=== PATIENT | female | born 1980 | race Two or more races ===

== ENCOUNTER 2017-09-21 05:24 | Inpatient (IN) | payer MEDICAID ==
[2017-09-21] MEDS ORDERED: LACTATED RINGER'S 500 ML IV (05:46)
[2017-09-21] MEDS ORDERED: CEFAZOLIN 2 GM/50 ML (PMX) 50 ML IV (06:00)
[2017-09-21] MEDS ORDERED: MISOPROSTOL 200 MCG TAB PR ×2 (06:00→17:30)
[2017-09-21] MEDS ORDERED: CARBOPROST 250 MCG INJ IM ×2 (06:00→17:30)
[2017-09-21] MEDS ORDERED: METHYLERGONOVINE 0.2 MG INJ IM ×2 (06:00→17:30)
[2017-09-21] MEDS ORDERED: OXYTOCIN 30 UNITS/LR 500 ML IV ×2 (06:00→17:30)
[2017-09-21 06:35] LABS: ADD MAN DIFF? NO
[2017-09-21] MEDS: LACTATED RINGER'S 1,000 ML IV (06:38)
[2017-09-21 06:49] LABS: INR 0.84; PROTIME 11.6 Sec (11.9-14.9); PT RATIO 0.9
[2017-09-21 06:50] LABS: ABNORMAL IP MESSAGE 1; BASOPHILS % 0.4 % (0.0-2.0); EOSINOPHILS # 0.1 10^3/ul (0.0-0.5); EOSINOPHILS % 1.1 % (0.0-7.0); HEMATOCRIT 42.4 % (37.0-47.0); HEMOGLOBIN 14.3 g/dl (12.0-16.0); LYMPHOCYTES # 2.5 10^3/ul (0.8-2.9); LYMPHOCYTES % 29.4 % (15.0-51.0); MEAN CORPUSCULAR HEMOGLOBIN 29.8 pg (29.0-33.0); MEAN CORPUSCULAR HGB CONC 33.7 g/dl (32.0-37.0); MEAN CORPUSCULAR VOLUME 88.3 fl (82.0-101.0); MEAN PLATELET VOLUME 13.3 fl (7.4-10.4); MONOCYTE # 0.7 10^3/ul (0.3-0.9); MONOCYTES % 7.9 % (0.0-11.0); NEUTROPHILS % 59.9 % (39.0-77.0); NUCLEATED RED BLOOD CELLS # 0.1 10^3/ul (0.0-0.0); NUCLEATED RED BLOOD CELLS% 0.7 /100WBC (0.0-0.0); PARTIAL THROMBOPLASTIN TIME 28.4 Sec (25.0-35.0); PLATELET COUNT 177 10^3/UL (140-415); RED CELL DISTRIBUTION WIDTH 13.8 % (11.5-14.5)
[2017-09-21 06:50] LABS: WHITE BLOOD COUNT 8.3 10^3/ul (4.8-10.8)
[2017-09-21 06:54] LABS: POSITIVE DIFF @See below
[2017-09-21] MEDS ORDERED: morphine SULFATE/PF (10 MG/10 ML) INJ (09:12)
[2017-09-21] MEDS ORDERED: PHENYLephrine (100 MCG/ML) 5ML SYG (09:33)
[2017-09-21] MEDS ORDERED: ONDANSETRON 4 MG INJ (09:34)
[2017-09-21] MEDS ORDERED: DEXAMETHASONE 4 MG/ML 1 ML INJ (09:34)
[2017-09-21] MEDS: OXYTOCIN 30 UNITS/LR 500 ML IV ×3 (10:53→23:03)
[2017-09-21] MEDS ORDERED: DIPHENHYDRAMINE 50 MG INJ IV (11:00)
[2017-09-21] MEDS ORDERED: HYDROmorphONE 0.5 MG/0.5 ML SYG IV ×2 (11:00)
[2017-09-21] MEDS ORDERED: ONDANSETRON 4 MG INJ IV (11:00)
[2017-09-21] MEDS ORDERED: NALOXONE (0.4 MG/ML) INJ IV (11:00)
[2017-09-21] MEDS ORDERED: NALBUPHINE HCL (10 MG/1 ML) INJ IV (11:00)
[2017-09-21] MEDS ORDERED: ZOLPIDEM 5 MG TAB PO (11:00)
[2017-09-21] MEDS: KETOROLAC 30 MG INJ IV (14:06)
[2017-09-21] MEDS ORDERED: HYDROCODONE/APAP (5/325) TAB PO ×2 (17:30)
[2017-09-21] MEDS ORDERED: OXYCODONE/ACETAMINOPHEN (5/325) TAB PO ×2 (17:30)
[2017-09-21] MEDS: LANOLIN 7 GM TUBE TOP (17:40)
[2017-09-21] MEDS: CEFAZOLIN 1 GM/50 ML (PMX) 50 ML IVPB (17:41)
[2017-09-21 18:36] LABS: RAPID PLASMA REAGIN NONREACTIVE (NR)
[2017-09-21] MEDS: GUAIFENESIN/DM 5ML CUP PO (20:46)
[2017-09-21] MEDS: SENNA/DOCUSATE NA (8.6MG/50MG) TAB PO (20:46)
[2017-09-21] MEDS: LACTATED RINGER'S 500 ML IV (23:00)
[2017-09-22] MEDS: OXYTOCIN 30 UNITS/LR 500 ML IV ×6 (01:15→21:15)
[2017-09-22] MEDS: LACTATED RINGER'S 1,000 ML IV (03:23)
[2017-09-22] MEDS: KETOROLAC 30 MG INJ IV (06:07)
[2017-09-22] MEDS: GUAIFENESIN/DM 5ML CUP PO ×3 (06:43→22:46)
[2017-09-22] MEDS ORDERED: INFLUENZA VIRUS VACCINE 0.5 ML (DISPENSING) IM* (09:00)
[2017-09-22 09:18] LABS: WHITE BLOOD COUNT 11.5 10^3/ul (4.8-10.8)
[2017-09-22 09:18] LABS: ABNORMAL IP MESSAGE 1; HEMATOCRIT 37.1 % (37.0-47.0); HEMOGLOBIN 12.5 g/dl (12.0-16.0); MEAN CORPUSCULAR HGB CONC 33.7 g/dl (32.0-37.0); MEAN PLATELET VOLUME 13.3 fl (7.4-10.4); PLATELET COUNT 200 10^3/UL (140-415); RED BLOOD COUNT 4.17 10^6/ul (4.20-5.40); RED CELL DISTRIBUTION WIDTH 13.7 % (11.5-14.5)
[2017-09-22 09:45] LABS: POSITIVE DIFF @See below
[2017-09-22 09:47] LABS: ADD MAN DIFF? YES
[2017-09-22] MEDS: SENNA/DOCUSATE NA (8.6MG/50MG) TAB PO ×2 (09:49→22:45)
[2017-09-22 10:46] LABS: EOSINOPHILS % (M) 1 % (0-7); LYMPHOCYTES #M 3.3 10^3/ul (0.8-2.9); LYMPHOCYTES % (M) 29 % (15-51); MONOCYTE #M 0.5 10^3/ul (0.3-0.9); MONOCYTES % (M) 5 % (0-11); PLATELET ESTIMATE NORMAL; SEGMENTED NEUTROPHILS (M) % 65 % (39-77); SMUDGE%M 1 % (0-0)
[2017-09-22] MEDS: IBUPROFEN 600 MG TAB PO ×2 (11:46→17:43)
[2017-09-23] MEDS: IBUPROFEN 600 MG TAB PO ×4 (00:45→17:23)
[2017-09-23] MEDS: OXYTOCIN 30 UNITS/LR 500 ML IV ×2 (01:15→05:15)
[2017-09-23] MEDS: SENNA/DOCUSATE NA (8.6MG/50MG) TAB PO ×2 (08:34→22:08)
[2017-09-23] MEDS: GUAIFENESIN/DM 5ML CUP PO (15:30)
[2017-09-24] MEDS: IBUPROFEN 600 MG TAB PO ×4 (00:52→17:26)
[2017-09-24] MEDS: SENNA/DOCUSATE NA (8.6MG/50MG) TAB PO (09:05)
[2017-09-24] MEDS: DIPHTH/TET/ACEL PERTUSS (ADULT) 0.5 ML VIAL IM* (09:07)
== END 2017-09-24 19:00 | disposition home or self-care (01) | DRG 766 ==
LOC: L-D 05:24 → PP1 15:12
PROVIDERS: Obstetrics & Gynecology
PROC: 10D00Z1 Extraction of Products of Conception, Low, Open Approach (ICD-10-PCS; principal; 2017-09-21 08:00)
PROC: 3E033VJ Introduction of Other Hormone into Peripheral Vein, Percutaneous Approach (ICD-10-PCS; 2017-09-21 08:00)
DX: O34.211 Maternal care for low transverse scar from previous cesarean delivery (principal); Z37.0 Single live birth; Z3A.39 39 weeks gestation of pregnancy
CPT/HCPCS: 85025; 85610; 85730; 86592; 86850; 86900; 86901; 86920; 90686; 90715; 94760; 99464